=== PATIENT | female | born 1970 | race Two or more races ===

== ENCOUNTER 2025-06-05 15:50 | Emergency (ER) | payer OTHER ==
[~2025-06-05] VITALS: Ht 144.8 cm; Wt 68.0 kg
[2025-06-05] MEDS ORDERED: GABAPENTIN300 MG (16:25)
[2025-06-05] MEDS ORDERED: COZAAR50 MG PO (16:25)
[2025-06-05] MEDS ORDERED: ADULT LOW DOSE81 M1 (16:25)
[2025-06-05] MEDS ORDERED: LIPITOR20 MG (16:26)
[2025-06-05] MEDS ORDERED: MORPHINE SULFATE 2 MG/ML SYRINGE IV STA (16:32)
[2025-06-05 18:06] LABS: BASO % 0.7 % (0.1-1.2); EOS # 0.12 (0.04-0.54); EOS % 1.5 % (0.7-7.0); LYMPH # 2.10 (1.18-3.74); LYMPH % 25.7 % (19.3-53.1); MEAN PLATELET VOLUME 11.10 fl (9.4-12.4); MONO # 0.38 (0.24-0.82); MONO % 4.7 % (4.7-12.5); NEUT # 5.48 (1.56-6.13); NEUT % 67.0 % (34.0-71.1); RED CELL DISTRIBUTION WIDTH 12.0 % (11.6-14.4)
[2025-06-05 18:42] LABS: BUN CREA RATIO 20.0 (7.0-25.0); CREATININE SERUM 0.86 mg/dL (0.55-1.02); GFR 68.01; GLUCOSE FASTING 168.0 mg/dL (65-100); OSMOLALITY SERUM 289.0 MOSM/KG (275-295); TSH 1.71 uIU/mL (0.358-3.74)
[2025-06-06] MEDS ORDERED: LOSARTAN-HCTZ1 EAC1 PO (02:16)
[2025-06-06] MEDS ORDERED: LIPITOR20 MG PO (02:16)
== END 2025-06-06 02:29 ==
LOC: ER 15:50
PROVIDERS: General Practice
DX: R07.9 Chest pain, unspecified (principal); R51.9 Headache, unspecified; Z88.8 Allergy status to other drugs, medicaments and biological substances; I10 Essential (primary) hypertension; J45.909 Unspecified asthma, uncomplicated; E11.9 Type 2 diabetes mellitus without complications; I20.89 Other forms of angina pectoris